=== PATIENT | female | born 2000 | race Two or more races ===

== ENCOUNTER 2022-04-16 08:19 | Inpatient (IN) | payer OTHER ==
[~2022-04-16] VITALS: Ht 162.6 cm; Wt 3.6 kg
== END 2022-04-20 15:15 | disposition home or self-care (01) | DRG 788 ==
LOC: LDR 08:19 → OB/GYN 04-17 19:49
PROVIDERS: ADMIT Obstetrics & Gynecology Obstetrics; ATTEND Obstetrics & Gynecology Obstetrics
PROC: 4A1HXCZ Monitoring of Products of Conception, Cardiac Rate, External Approach (ICD-10-PCS; 2022-04-16)
PROC: 10D00Z1 Extraction of Products of Conception, Low, Open Approach (ICD-10-PCS; principal; 2022-04-17 19:00)
DX: O62.1 Secondary uterine inertia (principal); Z3A.39 39 weeks gestation of pregnancy; Z37.0 Single live birth; Z20.822 Contact with and (suspected) exposure to COVID-19